=== PATIENT | female | born 1950 | race Caucasian/White ===

== ENCOUNTER → 2024-02-15 14:04 | Outpatient (REF) | payer BC, SELFPAY | LOC: HWRAD 14:04 | PROVIDERS: ATTENDING PHYSICIAN Internal Medicine | DX: M25.562 Pain in left knee (principal) | CPT/HCPCS: 73564 ==

== ENCOUNTER → 2024-04-11 10:06 | Outpatient (REF) | payer BC, SELFPAY ==
[2024-04-11 12:14] LABS: % Basophils 0.9 % (0-2); % Eosinophils 1.9 % (0-6); % Immature Granulocytes 0.3 % (0-0.5); % Lymphocytes 14.9 % (20.5-51.1); % Monocytes 10.2 % (1.7-9.3); % Neutrophils 71.8 % (42.2-75.2); Absolute Basophils 0.1 10^3/uL (0-0.2); Absolute Eosinophils 0.1 10^3/uL (0-0.7); Absolute Monocytes 0.7 10^3/uL (0.1-0.6); Absolute Neutrophils 4.6 10^3/uL (1.4-6.5); Hematocrit 38.9 % (37.0-47.0); Hemoglobin 12.9 g/dL (12.0-16.0); Mean Corp Hgb Conc. 33.2 g/dL (33.0-37.0); Mean Corpuscular Hgb 31.1 pg (27.0-31.0); Mean Corpuscular Volume 93.7 fL (81.0-99.0); Mean Platelet Volume 10.1 fL (7.4-10.4); Nucleated Red Blood Cells % 0 %; Platelet Count 270 10^3/uL (130-400); Red Blood Cell Count 4.15 10^6/uL (4.20-5.40); Red Cell Dist. Width 13.5 % (11.5-14.5); White Blood Cell Count 6.4 10^3/uL (4.8-10.8)
[2024-04-11 12:25] LABS: ALT (SGPT) 19 U/L (0-35); AST (SGOT) 29 U/L (14-36); Albumin 4.3 g/dl (3.5-5.0); Alkaline Phosphatase 92 U/L (38-126); Blood Urea Nitrogen 19 mg/dl (7-17); Calcium 9.7 mg/dl (8.4-10.2); Carbon Dioxide 26 mmol/L (22-30); Chloride 105 mmol/L (98-107); Glucose 101 mg/dl (70-99); HDL Cholesterol 46 mg/dl; LDL Cholesterol, Calculated 114 mg/dl; Potassium 4.5 mmol/L (3.5-5.1); Sodium 138 mmol/L (135-145); Total Bilirubin 0.7 mg/dl (0.2-1.3); Total Cholesterol 176 mg/dl (50-199); Total Protein 6.7 g/dl (6.3-8.2); Triglyceride 83 mg/dl (10-149); Very Low Density Lipoprotein 16 mg/dl (0-30); eGFR > 60.00
[2024-04-11 12:55] LABS: TSH Reflex To Free T4 1.25 uIU/ml (0.47-4.68)
== END ==
LOC: HWLAB 10:06
PROVIDERS: ATTENDING PHYSICIAN Internal Medicine
DX: Z12.11 Encounter for screening for malignant neoplasm of colon (principal); E03.9 Hypothyroidism, unspecified; L30.9 Dermatitis, unspecified; E78.1 Pure hyperglyceridemia; I10 Essential (primary) hypertension; Z00.00 Encounter for general adult medical examination without abnormal findings; H40.9 Unspecified glaucoma
CPT/HCPCS: 36415; 80053; 80061; 84443; 85025

== ENCOUNTER → 2024-11-02 14:52 | Outpatient (REF) | payer BC, SELFPAY | LOC: HWRCS 14:52 | PROVIDERS: ATTENDING PHYSICIAN Internal Medicine | DX: I34.1 Nonrheumatic mitral (valve) prolapse (principal) | CPT/HCPCS: 93306 ==

== ENCOUNTER → 2025-01-22 12:28 | Outpatient (REF) | payer BC, SELFPAY ==
[2025-01-22 15:50] LABS: ALT (SGPT) 14 U/L (0-35); AST (SGOT) 20 U/L (14-36); Albumin 4.1 g/dl (3.5-5.0); Alkaline Phosphatase 107 U/L (38-126); Blood Urea Nitrogen 19 mg/dl (7-17); Calcium 9.6 mg/dl (8.4-10.2); Carbon Dioxide 23 mmol/L (22-30); Chloride 105 mmol/L (98-107); Glucose 98 mg/dl (70-99); Potassium 4.8 mmol/L (3.5-5.1); Sodium 139 mmol/L (135-145); Total Bilirubin 0.4 mg/dl (0.2-1.3); Total Protein 6.8 g/dl (6.3-8.2); eGFR > 60.00
[2025-01-22 15:52] LABS: % Eosinophils 1.4 % (0-6); % Immature Granulocytes 0.3 % (0-0.5); % Lymphocytes 12.6 % (20.5-51.1); % Monocytes 9.5 % (1.7-9.3); % Neutrophils 75.2 % (42.2-75.2); Absolute Basophils 0.1 10^3/uL (0-0.2); Absolute Eosinophils 0.1 10^3/uL (0-0.7); Absolute Monocytes 0.7 10^3/uL (0.1-0.6); Absolute Neutrophils 5.9 10^3/uL (1.4-6.5); Hematocrit 29.2 % (37.0-47.0); Hemoglobin 8.7 g/dL (12.0-16.0); Mean Corp Hgb Conc. 29.8 g/dL (33.0-37.0); Mean Corpuscular Hgb 24.4 pg (27.0-31.0); Mean Platelet Volume 10.2 fL (7.4-10.4); Nucleated Red Blood Cells % 0 %; Platelet Count 384 10^3/uL (130-400); Red Blood Cell Count 3.56 10^6/uL (4.20-5.40); Red Cell Dist. Width 13.9 % (11.5-14.5); White Blood Cell Count 7.8 10^3/uL (4.8-10.8)
[2025-01-22 16:18] LABS: TSH Reflex To Free T4 1.14 uIU/ml (0.47-4.68)
[2025-01-23 08:05] LABS: Reticulocyte Count 2.1 % (0.4-2.8)
[2025-01-23 08:38] LABS: Iron 38 ug/dl (37-170)
[2025-01-23 08:51] LABS: Percent Saturation 7 % (20-50); Total Iron Binding Capacity 511 ug/dl (265-497)
[2025-01-23 09:01] LABS: Ferritin 5.2 ng/ml (11.1-264.0)
== END ==
LOC: HWLAB 12:28
PROVIDERS: ATTENDING PHYSICIAN Internal Medicine
DX: R53.81 Other malaise (principal); R53.83 Other fatigue; R23.1 Pallor
CPT/HCPCS: 36415; 80053; 82728; 83540; 83550; 84443; 85025; 85045

== ENCOUNTER → 2025-01-25 13:05 | Outpatient (REF) | payer BC, SELFPAY | LOC: HWLAB 13:05 | PROVIDERS: ATTENDING PHYSICIAN Internal Medicine | DX: D64.9 Anemia, unspecified (principal) | CPT/HCPCS: 82272 ==

== ENCOUNTER → 2025-04-22 09:41 | Outpatient (REF) | payer BC, SELFPAY ==
[2025-04-22 11:23] LABS: Hematocrit 41.4 % (37.0-47.0); Hemoglobin 13.9 g/dL (12.0-16.0); Mean Corp Hgb Conc. 33.6 g/dL (33.0-37.0); Mean Corpuscular Volume 89.0 fL (81.0-99.0); Nucleated Red Blood Cells % 0 %; Platelet Count 231 10^3/uL (130-400); Red Cell Dist. Width 17.6 % (11.5-14.5)
[2025-04-22 11:37] LABS: ALT (SGPT) 34 U/L (0-35); AST (SGOT) 31 U/L (14-36); Albumin 4.4 g/dl (3.5-5.0); Alkaline Phosphatase 84 U/L (38-126); Blood Urea Nitrogen 20 mg/dl (7-17); Calcium 9.7 mg/dl (8.4-10.2); Carbon Dioxide 31 mmol/L (22-30); Chloride 104 mmol/L (98-107); Glucose 106 mg/dl (70-99); HDL Cholesterol 42 mg/dl; LDL Cholesterol, Calculated 145 mg/dl; Potassium 4.1 mmol/L (3.5-5.1); Sodium 138 mmol/L (135-145); Total Protein 7.0 g/dl (6.3-8.2); Very Low Density Lipoprotein 21 mg/dl (0-30); eGFR > 60.00
== END ==
LOC: HWLAB 09:41
PROVIDERS: ATTENDING PHYSICIAN Internal Medicine
DX: E78.1 Pure hyperglyceridemia (principal); E03.9 Hypothyroidism, unspecified; Z00.00 Encounter for general adult medical examination without abnormal findings
CPT/HCPCS: 36415; 80053; 80061; 84443; 85025